=== PATIENT | female | born 1995 ===

== ENCOUNTER 2017-06-08 20:08 | Emergency (ER) | payer MEDICAID, OTHER ==
[2017-06-08 20:17] VITALS: BP 132/83; PULSE 82; RESP 14; TEMP 98.2; O2SAT 99
--- NOTE | 2017-06-08 20:59 | C.PDOC ---
History Of Present Illness 22 y/o female presents to ED with c/o lower back pain, intermittently, for several months. Patient reports pain has been persistent for the past 4 days, worse in the lower right back, which prompted visit. She notes pain worsens with movement. Denies trauma, neck pain, abdominal pain, nausea, vomiting, new weakness, new numbness, urinary or bowel incontinence, dysuira, frequency, or other associated symptoms. Time Seen by Provider: 06/08/17 20:26 Chief Complaint (Nursing): Back Pain History Per: Patient History/Exam Limitations: no limitations Onset/Duration Of Symptoms: Days, Persistent Quality Of Discomfort: "Pain" Associated Symptoms: denies: Incontinence, New Weakness, New Numbness Exacerbating Factor(s): Movement Recent travel outside of the [place]: No Past Medical History Reviewed: Historical Data, Nursing Documentation, Vital Signs Vital Signs: Last Vital Signs Temp 98.2 F 06/08/17 20:15 Pulse 82 06/08/17 20:15 Resp 14 06/08/17 20:15 BP 132/83 06/08/17 20:15 Pulse Ox 99 06/08/17 21:37 - Medical History PMH: No Chronic Diseases Family History: States: Unknown Family Hx - Social History Hx Alcohol Use: No Hx Substance Use: No Review Of Systems Except As Marked, All Systems Reviewed And Found Negative. Constitutional: Negative for: Fever, Chills Gastrointestinal: Negative for: Nausea, Vomiting, Abdominal Pain Genitourinary: Negative for: Dysuria, Frequency, Incontinence Musculoskeletal: Positive for: Back Pain. Negative for: Neck Pain Skin: Negative for: Rash Neurological: Negative for: Headache, Dizziness Physical Exam - Physical Exam Appears: Non-toxic, No Acute Distress Skin: Normal Color, Warm, Dry Head: Atraumatic, Normacephalic Eye(s): bilateral: Normal Inspection, EOMI Neck: Normal ROM, Supple Chest: Symmetrical, No Tenderness Cardiovascular: Rhythm Regular Respiratory: Normal Breath Sounds, No Rales, No Rhonchi, No Wheezing Gastrointestinal/Abdominal: Soft, No Tenderness Back: No CVA Tenderness, No Vertebral Tenderness, Paraspinal Tenderness ( minimal R paralumbar tenderness) Extremity: Normal ROM, Capillary Refill (< 2 sec.) Extremity: Bilateral: Atraumatic Neurological/Psych: Oriented x3, Normal Speech, Normal Motor, Normal Sensation Gait: Steady ED Course And Treatment O2 Sat by Pulse Oximetry: 99 (RA) Pulse Ox Interpretation: Normal Progress Note: Treated with Motrin PO. UA ordered and reviewed. On reassessment , patient is in no acute distress, with improvement of back pain. Patient has no bony tenderness, extremity numbness or weakness, or abdominal pain. Patient is ambulatory in the emergency department with no apparent distress. Patient was advised to follow up with PMD/clinic in 1-2 days. Reevaluation Time: 22:50 Reassessment Condition: Improved Disposition - Disposition Referrals: [facility] [Outside] Disposition: HOME/ ROUTINE Disposition Time: 21:33 Condition: STABLE Additional Instructions: Please follow up with PMD Take meds as directed Return to ER if worse Prescriptions: Ibuprofen [Motrin] 600 mg PO Q6H #30 tab Instructions: Acute Low Back Pain (ED) Forms: [employer] (Bulgarian) - Clinical Impression Clinical Impression: Low back pain - PA / [employer] / Resident Statement MD/DO has reviewed & agrees with the documentation as recorded. - Scribe Statement The provider has reviewed the documentation as recorded by the Scribe SM All medical record entries made by the Scribe were at my direction and personally dictated by me. I have reviewed the chart and agree that the record accurately reflects my personal performance of the history, physical exam, medical decision making, and the department course for this patient. I have also personally directed, reviewed, and agree with the discharge instructions and disposition.
[2017-06-08 21:06] LABS: URINE BILIRUBIN NEGATIVE (NEGATIVE); URINE BLOOD NEGATIVE (NEGATIVE); URINE COLOR Yellow (YELLOW); URINE GLUCOSE (UA) NORMAL (Normal); URINE KETONE NEGATIVE (NEGATIVE); URINE LEUKOCYTE ESTERASE NEG Leu/uL (Negative); URINE PROTEIN NEGATIVE (NEGATIVE); URINE UROBILINOGEN NORMAL mg/dL (0.2-1.0); WBC URINE < 1 /hpf (0-5)
== END 2017-06-08 21:40 | disposition home or self-care (01) ==
LOC: C.ER 20:08
DX: M54.5 Low back pain (principal)

== ENCOUNTER 2017-09-08 17:56 | Emergency (ER) | payer OTHER ==
--- NOTE | 2017-09-08 18:06 | C.PDOC ---
History Of Present Illness 22f @ approx 10 WGA by dates c/o intermittent low abd pain for the last 5 days. has not taken anything for pain. no exac or reliev fx. denies f/c, n/v, vag bleeding. hx of 1 spont ab in the past. Time Seen by Provider: 09/08/17 18:06 Chief Complaint (Nursing): Abdominal Pain Past Medical History Vital Signs: Last Vital Signs Temp 97.4 F L 09/08/17 18:06 Pulse 80 09/08/17 19:50 Resp 16 09/08/17 19:50 BP 120/70 09/08/17 19:50 Pulse Ox 99 09/08/17 19:50 Family History: States: Other Other Family History: nc - Social History Hx Alcohol Use: No Hx Substance Use: No Review Of Systems Constitutional: Negative for: Fever, Chills Cardiovascular: Negative for: Chest Pain Respiratory: Negative for: Shortness of Breath Gastrointestinal: Positive for: Abdominal Pain. Negative for: Nausea, Vomiting Genitourinary: Negative for: Dysuria Physical Exam - Physical Exam Appears: Well, Non-toxic, No Acute Distress Skin: Warm, Dry Head: Atraumatic Oral Mucosa: Moist Cardiovascular: Rhythm Regular Respiratory: No Decreased Breath Sounds, No Accessory Muscle Use Gastrointestinal/Abdominal: Soft, No Tenderness, No Distention, No Guarding, No Rebound Extremity: No Swelling Neurological/Psych: Oriented x3, Normal Motor, Normal Sensation, Other (no focal deficits) Gait: Steady Medical Decision Making Medical Decision Making: bedside US shows intrauterine gestation w FHR 158 Disposition - Disposition Referrals: [facility] [Outside] [facility] [Outside] Disposition: HOME/ ROUTINE Disposition Time: 19:50 Condition: GOOD Additional Instructions: Please follow up with an OBGYN doctor. Return to the ER for any worsening symptoms, fever, or for any other concerns. Instructions: Abdominal Pain in (ED) Forms: Gen Discharge Inst Chilean, [employer] (Amharic) Print Language: LATVIAN - Clinical Impression Clinical Impression: Abdominal pain during
[2017-09-08 18:19] VITALS: RESP 16; TEMP 97.4
[2017-09-08 18:36] LABS: RBC URINE < 1 /hpf (0-3); URINE BACTERIA RARE (<OCC); URINE BILIRUBIN NEGATIVE (NEGATIVE); URINE BLOOD NEGATIVE (NEGATIVE); URINE COLOR Straw (YELLOW); URINE GLUCOSE (UA) NORMAL (Normal); URINE KETONE NEGATIVE (NEGATIVE); URINE LEUKOCYTE ESTERASE NEG Leu/uL (Negative); URINE PROTEIN NEGATIVE (NEGATIVE); URINE UROBILINOGEN NORMAL mg/dL (0.2-1.0); WBC URINE 2 /hpf (0-5)
[2017-09-08 19:50] VITALS: BP 120/70; PULSE 80; O2SAT 99
== END 2017-09-08 19:50 | disposition home or self-care (01) ==
LOC: C.ER 17:56
DX: O26.899 Other specified pregnancy related conditions, unspecified trimester (principal); R10.9 Unspecified abdominal pain; Z3A.00 Weeks of gestation of pregnancy not specified